=== PATIENT | female | born 1960 | race Caucasian/White ===

== ENCOUNTER 2020-06-26 07:30 | Outpatient (REF) | payer BC, SELFPAY | END 2020-06-26 07:31 | disposition home or self-care (01) | LOC: HO.WFDLDS 07:30 | PROVIDERS: Visit Provider Internal Medicine | DX: Z20.828 Contact with and (suspected) exposure to other viral communicable diseases (principal) | CPT/HCPCS: 87635 ==

== ENCOUNTER 2020-07-05 07:20 | Outpatient (REF) | payer BC, SELFPAY | END 2020-07-05 07:21 | disposition home or self-care (01) | LOC: HO.WFDLDS 07:20 | PROVIDERS: Visit Provider Internal Medicine | DX: Z20.828 Contact with and (suspected) exposure to other viral communicable diseases (principal) | CPT/HCPCS: 87635 ==